=== PATIENT | female | born 2000 | race Caucasian/White ===

== ENCOUNTER 2020-06-08 04:51 | Emergency (ER) | payer SELFPAY ==
[~2020-06-08] VITALS: Ht 157.5 cm; Wt 68.0 kg
[2020-06-08 04:51] VITALS: BP 111/82
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
[2020-06-08] MEDS ORDERED: LIDOCAINE 2%-EPI 1:100,000 30 ML VIAL ONE (05:10)
--- NOTE | 2020-06-08 05:15 | NUR ---
AT BEDSIDE FOR WOUND CARE
[2020-06-08] MEDS ORDERED: TDAP [DIPH/PERTUSSIS/TET] 0.5 ML VIAL IM ONE (05:41)
[2020-06-08] MEDS: TDAP [DIPH/PERTUSSIS/TET] 0.5 ML VIAL IM ONE (05:47)
--- NOTE | 2020-06-08 05:53 | NUR ---
Patient discharged to home in stable condition. Written and verbal after care instructions given. Patient verbalizes understanding of instruction.
== END 2020-06-08 06:02 | disposition home or self-care (01) ==
LOC: ER 04:54
DX: S81.811A Laceration without foreign body, right lower leg, initial encounter (principal); F10.129 Alcohol abuse with intoxication, unspecified; W26.8XXA Contact with other sharp object(s), not elsewhere classified, initial encounter; Y93.89 Activity, other specified; Y92.89 Other specified places as the place of occurrence of the external cause; Y99.8 Other external cause status; Y90.9 Presence of alcohol in blood, level not specified
CPT/HCPCS: 12002; 90471; 90715; 99283; A6403; J3490